=== PATIENT | male | born 1970 | race Caucasian/White ===

== ENCOUNTER 2018-08-26 03:47 | Emergency (ER) | payer OTHER, BC ==
--- NOTE | 2018-08-26 03:54 | EDM.PDOC ---
ED HPI GENERAL MEDICAL PROBLEM - General Chief Complaint: Allergic Reaction Stated Complaint: ALLERGIC REACTION Time Seen by Provider: 08/26/18 03:54 - History of Present Illness INITIAL COMMENTS - FREE TEXT/NARRATIVE: 48-year-old male presents emergency room with throat swelling Patient awoke around 2 AM with a horrible sore throat and he was very thirsty. He noticed difficulty trying to drink he had tightness around his throat. His looked down his throat and saw that his uvula was grossly swollen. The patient also noticed some discomfort with swallowing. The patient is not aware of any new exposures they had a spicy meal for supper there were a lot of spices in it but no new spices that he has not been exposed to in the past. The patient does not have a family history of throat swelling or angioedema. - Related Data Allergies Allergy/AdvReac Type Severity Reaction Status Date / Time No Known Allergies Allergy Verified 08/26/18 03:57 Home Meds: Home Meds Famotidine [Pepcid] 20 mg PO Q12H #20 tablet 08/26/18 [Rx] predniSONE [Prednisone] 60 mg PO Q24H #12 tablet 08/26/18 [Rx] ED ROS ALLERGIC REACTION - Review of Systems Review Of Systems: See Below Constitutional: Reports: No Symptoms HEENT: Reports: Throat Swelling Respiratory: Reports: No Symptoms Cardiovascular: Reports: No Symptoms GI/Abdominal: Reports: No Symptoms Neurological: Reports: No Symptoms ED EXAM GENERAL NO PERIP PULSE - Physical Exam Exam: See Below Exam Limited By: No Limitations General Appearance: Alert, No Apparent Distress Eye Exam: Bilateral Eye: Normal Inspection Ears: Normal External Exam, Normal Canal, Hearing Grossly Normal, Normal TMs Nose: Normal Inspection, Normal Mucosa, No Blood Throat/Mouth: No Airway Compromise, Other (No erythema or exudate his uvula is grossly swollen) Head: Atraumatic, Normocephalic Neck: Normal Inspection, Supple, Non-Tender, Full Range of Motion. No: Lymphadenopathy (L), Lymphadenopathy (R) Respiratory/Chest: No Respiratory Distress, Lungs Clear, Normal Breath Sounds Cardiovascular: Regular Rate, Rhythm, No Edema, No Murmur Back Exam: Normal Inspection Extremities: No Pedal Edema Skin Exam: Other (Examination reveals no evidence of rash) Course - Vital Signs Last Recorded V/S: Last Vital Signs Temp 37.1 C 08/26/18 03:55 Pulse 70 08/26/18 03:55 Resp 16 08/26/18 03:55 BP 133/74 08/26/18 03:55 Pulse Ox 99 08/26/18 03:55 - Orders/Labs/Meds Meds: Medications Discontinued Medications Generic Name Dose Route Start Last Admin Trade Name Federico PRN Reason Stop Dose Admin Famotidine 40 mg 08/26/18 04:09 08/26/18 04:26 Pepcid IVPUSH 08/26/18 04:10 40 mg ONETIME ONE Administration Loratadine 10 mg 08/26/18 04:09 08/26/18 04:27 Claritin PO 08/26/18 04:10 10 mg ONETIME ONE Administration Methylprednisolone Sodium Succinate 125 mg 08/26/18 04:09 08/26/18 04:26 Solu-Medrol IVPUSH 08/26/18 04:10 125 mg ONETIME ONE Administration - Re-Assessments/Exams Free Text/Narrative Re-Assessment/Exam: 08/26/18 07:27 Patient had IV access established she was given 125 mg of Solu-Medrol 40 mg of IV Pepcid. Shortly after this the clamping sensation around his neck resolved completely. The patient was observed for several more hours and the uvula that appeared angioedematous started to gradually get smaller is not close to baseline yet but it is much better than it was. The patient is demonstrated nearly 4 hours of stability in our department and he would like to go home. We will discharge at this time Departure - Departure Time of Disposition: 07:28 Disposition: Home, Self-Care 01 Clinical Impression: Allergic angioedema - Discharge Information Prescriptions: Famotidine [Pepcid] 20 mg PO Q12H #20 tablet predniSONE [Prednisone] 60 mg PO Q24H #12 tablet Referrals: PCP,None [Primary Care Provider] - Forms: ED Department Discharge Additional Instructions: Return to the emergency room with any questions problems worsening symptoms. Return immediately if you think you're developing any more tightness in her neck or swelling. You've been started on 2 new prescriptions the first his prednisone take 3 20 mg tablets every morning until gone start these on Saturday. You've been started on Pepcid, or famotidine 20 mg take one twice a day for at least 3 days after you're done with the prednisone. The third medication is [id number] loratadine take 10 mg every morning. This is [id number].
[2018-08-26] MEDS ORDERED: methylPREDNISolone Sodium Succinate 125 MG/2 ML SDV IVPUSH ONE (04:09)
[2018-08-26] MEDS ORDERED: Famotidine 20 MG/2 ML SDV IVPUSH ONE (04:09)
[2018-08-26] MEDS ORDERED: Loratadine 10 MG Tab PO ONE (04:09)
== END 2018-08-26 07:55 | disposition home or self-care (01) ==
LOC: JD.ED 03:47
DX: T78.3XXA Angioneurotic edema, initial encounter (principal)
CPT/HCPCS: 96374; 96375; 99284; A9270; J2930; J3490; 99283

== ENCOUNTER 2021-06-10 17:31 | Emergency (ER) | payer OTHER, BC ==
[2021-06-10] MEDS ORDERED: Sodium Chloride 0.9% 10 ML Syringe FLUSH PRN ×2 (17:38→18:29)
[2021-06-10] MEDS ORDERED: Iopamidol 755 MG/ML 50 ML Bottle IVPUSH ONE (18:29)
[2021-06-10] MEDS ORDERED: Iopamidol 612 MG/ML 100 ML Bottle IVPUSH ONE (18:29)
== END 2021-06-10 19:35 | disposition home or self-care (01) ==
LOC: JD.ED 17:31
DX: S28.0XXA Crushed chest, initial encounter (principal); S38.1XXA Crushing injury of abdomen, lower back, and pelvis, initial encounter; S30.1XXA Contusion of abdominal wall, initial encounter; W23.0XXA Caught, crushed, jammed, or pinched between moving objects, initial encounter; Y99.0 Civilian activity done for income or pay
CPT/HCPCS: 36415; 70450; 71260; 72125; 74177; 80053; 83605; 83690; 85025; 85610; 85730; 93005; 99284; Q9967; 93010; 99285

== ENCOUNTER 2023-09-30 09:40 | Emergency (ER) | payer BC, OTHER ==
[2023-09-30 10:30] LABS: BASOPHILS PERCENT AUTO 0.7 % (0.0-1.0); EOSINOPHILS ABSOLUTE AUTO 0.1 K/mm3 (0.0-0.4); EOSINOPHILS PERCENT AUTO 2.7 % (0.0-6.0); HEMATOCRIT 42.6 % (42.0-52.0); HEMOGLOBIN 14.6 gm/dl (14.0-18.0); IMMATURE GRAN ABSOLUTE AUTO 0.02 K/mm3 (0.00-0.05); IMMATURE GRAN PERCENT AUTO 0.4 % (0.0-0.4); LYMPHOCYTES ABSOLUTE AUTO 1.2 K/mm3 (1.0-4.8); LYMPHOCYTES PERCENT AUTO 26.7 % (24.0-44.0); MEAN CORPUSCULAR HEMOGLOBIN 30.3 pg (28.0-32.0); MEAN CORPUSCULAR HGB CONC 34.3 g/dl (32.0-36.0); MEAN CORPUSCULAR VOLUME 88.4 fl (83.0-99.0); MEAN PLATELET VOLUME 10.1 fl (9.4-12.4); MONOCYTES ABSOLUTE AUTO 0.4 K/mm3 (0.0-0.8); MONOCYTES PERCENT AUTO 9.8 % (0.0-8.0); NEUTROPHILS ABSOLUTE AUTO 2.7 K/mm3 (1.8-7.7); NEUTROPHILS PERCENT AUTO 59.7 % (41.0-71.0); PLATELET COUNT,PLT 252 K/mm3 (150-400); RED BLOOD CELL COUNT 4.82 M/mm3 (4.52-5.90); WHITE BLOOD CELL COUNT,WBC 4.49 K/mm3 (3.9-11.3)
[2023-09-30 10:58] LABS: A/G RATIO 1.2 (1-2); ALANINE AMINOTRANSFERASE,ALT 28 U/L (16-63); ALBUMIN 3.8 g/dl (3.4-5.0); ALKALINE PHOSPHATASE 79 U/L (46-116); ANION GAP 12.2 (5-15); ASPARTATE AMNIOTRANSFERASE,AST 19 U/L (15-37); BILIRUBIN TOTAL 0.3 mg/dL (0.2-1.0); BLOOD UREA NITROGEN,BUN 7 mg/dL (7-18); CALCIUM 8.9 mg/dL (8.5-10.1); CARBON DIOXIDE,CO2 27 mEq/L (21-32); CHLORIDE,CL 103 mEq/L (98-107); EST CRCL DRUG DOSING (CG) 82.65 mL/min; ESTIMATED GFR 90 mL/min (>60); GLUCOSE RANDOM 96 mg/dL (70-99); MAGNESIUM 1.9 mg/dL (1.8-2.4); POTASSIUM,K 4.2 mEq/L (3.5-5.1); PROTEIN TOTAL,TP 7.1 g/dl (6.4-8.2); SODIUM,NA 138 mEq/L (136-145)
[2023-09-30 11:09] LABS: ACETAMINOPHEN 0 ug/mL (10-30); TROPONIN I HIGH SENSITIVITY < 4 pg/mL (<=76)
[2023-09-30 11:24] LABS: AMPHETAMINES SCREEN, URINE NEGATIVE (CUTOFF=500); BARBITURATE SCREEN,URINE NEGATIVE (CUTOFF=200); BENZODIAZEPINES SCREEN,URINE NEGATIVE (CUTOFF=150); METHADONE SCREEN, URINE NEGATIVE (CUT0FF=200); METHAMPHETAMINES SCREEN, URINE NEGATIVE (CUTOFF=500); OXYCODONE SCREEN,URINE NEGATIVE (CUT0FF=100); THC SCREEN,URINE 20 NG/ML NEGATIVE (CUTOFF=50)
[2023-09-30 11:25] LABS: BUPRENORPHINE SCREEN,URINE NEGATIVE (CUTOFF=10)
== END 2023-09-30 12:46 | disposition home or self-care (01) ==
LOC: JD.ED 09:40
DX: F41.9 Anxiety disorder, unspecified (principal); R51.9 Headache, unspecified; R43.9 Unspecified disturbances of smell and taste; Z79.899 Other long term (current) drug therapy
CPT/HCPCS: 36415; 70450; 70450-26; 80053; 80143; 80179; 80306; 80307; 83735; 84484; 85025; 93005; 93010; 99283; 99285

== ENCOUNTER 2024-01-13 13:13 | Emergency (ER) | payer OTHER | END 2024-01-13 15:00 | disposition home or self-care (01) | LOC: JD.ED 13:13 | DX: R68.84 Jaw pain (principal); Z86.16 Personal history of COVID-19; Z79.899 Other long term (current) drug therapy | CPT/HCPCS: 70486; 70486-26; 99283 ==